=== PATIENT | male | born 1975 | race Caucasian/White ===

== ENCOUNTER 2017-01-18 21:55 | Observation (INO) | payer OTHER ==
[2017-01-18 21:57] VITALS: BP 167/103; PULSE 97; RESP 16; TEMP 98.4; O2SAT 100
--- NOTE | 2017-01-18 22:13 | PD ---
Physical Exam Date Seen by Provider: Jan 18, 2017 Time Seen by Provider: 22:10 Data Data Last Documented VS Vital Signs Date Time Temp Pulse Resp B/P Pulse Ox O2 Delivery O2 Flow Rate FiO2 01/18/17 21:57 98.4 97 16 167/103 100 Room Air MDM Supervised Visit with VAL: No Narrative Course 41 YO M with PMH of COPD with complaint of SOB x "a few days" despite treatment with nebs and inhalers at home. +intermittent nonproductive cough. ---F/C. O2 sat 100% ORA in triage. Vitals reviewed. Patient seen in triage. Awaiting bed placement. Anna Garcia Jan 18, 2017 22:13
[2017-01-18] MEDS ORDERED: SODIUM CHLORIDE 0.9% FLUSH 10 ML FLUSH IVF PRN (22:45)
[2017-01-18] MEDS ORDERED: methylPREDNISolone SOD SUCC 125 MG/2 ML VIAL IVP ONE (22:45)
--- NOTE | 2017-01-18 22:45 | PD ---
HPI Chief Complaint: Respiratory Symptoms Time Seen by Provider: 22:43 Travel History International Travel<30 days: No Contact w/Intl Traveler<30days: No Traveled to known affect area: No History of Present Illness HPI 41-year-old male with history of asthma/COPD presents with 2 days of progressively worsening shortness of breath and wheezing. Patient's had nonproductive cough. Patient denies fever or chills. Patient denies pleuritic chest pain. Patient has had no swelling or pain to lower extremities. Patient does have multiple medications he takes for his respiratory illness and has been using his rescue inhaler as well as nebulized treatments and Spiriva without symptomatic relief. Patient recently ran out of his oral steroid 2 days ago. Patient states he has never been hospitalized for exacerbation of asthma/COPD. No tobacco use 4 months. PFSH Past Medical History Bipolar Disorder: Yes COPD: Yes Diminished Hearing: No Tetanus Vaccination: Unknown Influenza Vaccination: No Past Surgical History Tonsillectomy: Yes Social History Alcohol Use: Yes (RECOVERING ALCOHOLIC, QUIT 18 YRS AGO) Tobacco Use: Yes (QUIT 4 MONTHS AGO) Allergies-Medications (Allergen,Severity, Reaction): Coded Allergies: No Known Allergies (Unverified , 01/18/17) Reported Meds & Prescriptions Reported Meds & Active Scripts Active Reported Levothyroxine (Levothyroxine Sodium) 25 Mcg Tab 25 Mcg PO DAILY Bupropion HCl ER 24 HR (Bupropion HCl) 300 Mg Tab 300 Mg PO DAILY Lamictal (Lamotrigine) 100 Mg Tab 100 Mg PO DAILY [place] Liq 300 Mg/5 Ml Liq 300 Mg PO TID Singulair (Montelukast Sodium) 10 Mg Tab 10 Mg PO HS Ventolin Hfa 18 GM Inh (Albuterol Sulfate) 90 Mcg/Act Aer 2 Puff INH Q4H PRN Symbicort Inh (Budesonide/Formoterol Fumarate) 80-4.5 Mcg/Act Aero 2 Puff INH Q12HR Albuterol Neb (Albuterol Sulfate) 0.63 Mg/3 Ml Neb 0.63 Mg NEB Q4HR NEB PRN Incruse Ellipta Inh (Umeclidinium [place] Inh) 0.0625 Mg/Act Inh 62.5 Mcg INH DAILY Spiriva Respimat Inh (Tiotropium Inh) 1.25 Mcg/Act Aero 2 Puff INH DAILY 1.25 mcg = 1 inhalation Review of Systems Except as stated in HPI: all other systems reviewed are Neg General / Constitutional: No: Fever, Chills HENT: No: Congestion Cardiovascular: Positive: Chest Pain or Discomfort Respiratory: Positive: Shortness of Breath, Wheezing Gastrointestinal: Positive: Nausea, No: Abdominal Pain Genitourinary: No: Flank Pain Musculoskeletal: No: Myalgias, Arthralgias, Edema, Pain Skin: No Rash Neurologic: No: Weakness Psychiatric: No: Anxiety Hematologic/Lymphatic: No: Lymph Node Enlargement Physical Exam Narrative GENERAL: Well-developed well-nourished male in mild respiratory distress room air O2 saturation 98% SKIN: Warm and dry. HEAD: Normocephalic. EYES: No scleral icterus. No injection or drainage. NECK: Supple, trachea midline. No JVD or lymphadenopathy. CARDIOVASCULAR: Regular rate and rhythm without murmurs, gallops, or rubs. RESPIRATORY: Breath sounds equal bilaterally few end expiratory wheeze to auscultation. No accessory muscle use. GASTROINTESTINAL: Abdomen soft, non-tender, nondistended. MUSCULOSKELETAL: No cyanosis, or edema. Bilateral radial and dorsalis pedis pulses 2+ to palpation. BACK: Nontender without obvious deformity. No CVA tenderness. Data Data Last Documented VS Vital Signs Date Time Temp Pulse Resp B/P Pulse Ox O2 Delivery O2 Flow Rate FiO2 01/19/17 00:53 98 24 138/82 96 Room Air 01/18/17 22:50 2.00 01/18/17 21:57 98.4 Orders Complete Blood Count With Diff (01/18/17 22:43) Basic Metabolic Panel (Bmp) (01/18/17 22:43) B-Type Natriuretic Peptide (01/18/17 22:43) Act Partial Throm Time (Ptt) (01/18/17 22:43) Prothrombin Time / Inr (Pt) (01/18/17 22:43) Magnesium (Mg) (01/18/17 22:43) Ckmb (Isoenzyme) Profile (01/18/17 22:43) Troponin I (01/18/17 22:43) Iv Access Insert/Monitor (01/18/17 22:43) Electrocardiogram (01/18/17 22:43) Ecg Monitoring (01/18/17 22:43) Oximetry (01/18/17 22:43) Oxygen Administration (01/18/17 22:43) Chest, Single Ap (01/18/17 22:43) Sodium Chloride 0.9% Flush (Ns Flush) (01/18/17 22:45) Methylprednisolone So Succ Inj (Solumedr (01/18/17 22:45) Albuterol-Ipratropium Neb (Duoneb Neb) (01/18/17 22:45) CKMB (01/18/17 22:40) CKMB% (01/18/17 22:40) Potassium Chloride (Kcl) (01/19/17 00:30) Aspirin Chew (Aspirin Chew) (01/19/17 09:00) Nitroglycerin Sl (Nitrostat Sl) (01/19/17 00:45) D-Dimer (01/19/17 00:41) Aspirin Chew (Aspirin Chew) (01/19/17 01:00) Nitroglycerin Sl (Nitrostat Sl) (01/19/17 02:30) Admit Order (Ed Use Only) (01/19/17 ) ^ Saline Lock (01/19/17 02:20) Resp Oxygen Maximus C Titrat 1-4 L (01/19/17 ) Notify Dr: Other (01/19/17 02:20) Sodium Chloride 0.9% Flush (Ns Flush) (01/19/17 09:00) Sodium Chloride 0.9% Flush (Ns Flush) (01/19/17 02:30) Activity Bed Rest With Brp (01/19/17 02:20) Vital Signs (Adult) Q4H (01/19/17 02:20) Cardiac Rhythm .As Directed (01/19/17 02:20) Notify Dr: Other .PRN (01/19/17 02:20) Notify Dr. Parameters (01/19/17 02:20) Resp Oxygen Nasal Cannula (01/19/17 ) Labs Laboratory Tests Test 01/18/17 22:40 White Blood Count 9.9 TH/MM3 Red Blood Count 4.33 MIL/MM3 Hemoglobin 13.3 GM/DL Hematocrit 39.1 % Mean Corpuscular Volume 90.1 FL Mean Corpuscular Hemoglobin 30.6 PG Mean Corpuscular Hemoglobin 34.0 % Concent Red Cell Distribution Width 13.2 % Platelet Count 204 TH/MM3 Mean Platelet Volume 8.3 FL Neutrophils (%) (Auto) 66.3 % Lymphocytes (%) (Auto) 23.5 % Monocytes (%) (Auto) 7.3 % Eosinophils (%) (Auto) 2.5 % Basophils (%) (Auto) 0.4 % Neutrophils # (Auto) 6.5 TH/MM3 Lymphocytes # (Auto) 2.3 TH/MM3 Monocytes # (Auto) 0.7 TH/MM3 Eosinophils # (Auto) 0.2 TH/MM3 Basophils # (Auto) 0.0 TH/MM3 CBC Comment DIFF FINAL Differential Comment Prothrombin Time 9.8 SEC Prothromb Time International 0.9 RATIO Ratio Activated Partial 24.8 SEC Thromboplast Time D-Dimer Quantitative (PE/DVT) 0.20 MG/L FEU Sodium Level 141 MEQ/L Potassium Level 3.3 MEQ/L Chloride Level 108 MEQ/L Carbon Dioxide Level 23.7 MEQ/L Anion Gap 9 MEQ/L Blood Urea Nitrogen 10 MG/DL Creatinine 1.30 MG/DL Estimat Glomerular Filtration 61 ML/MIN Rate Random Glucose 82 MG/DL Calcium Level 9.1 MG/DL Magnesium Level 2.1 MG/DL Total Creatine Kinase 108 U/L Creatine Kinase MB 1.5 NG/ML Troponin I LESS THAN 0.02 NG/ML B-Type Natriuretic Peptide 8 PG/ML MDM Medical Decision Making Medical Screen Exam Complete: Yes Emergency Medical Condition: Yes Medical Record Reviewed: Yes Interpretation(s) EKG: Normal sinus rhythm rate [address] elevation or injury pattern or ectopy noted Vital Signs Date Time Temp Pulse Resp B/P Pulse Ox O2 Delivery O2 Flow Rate FiO2 01/19/17 00:53 98 24 138/82 96 Room Air 01/18/17 22:50 100 Nasal Cannula 2.00 01/18/17 22:35 100 Nasal Cannula 2 01/18/17 21:57 98.4 97 16 167/103 100 Room Air CBC & BMP Diagram 01/18/17 22:40 cxr: nad per reading radiologist --reviewed by me Differential Diagnosis Exacerbation COPD, asthma, CHF, PE, ACS, pneumonia, pneumothorax Narrative Course Patient given DuoNeb updraft 3 along with Solu-Medrol; patient had EKG performed which shows no acute ST elevation Patient resting comfortably states no shortness of breath but continues to complain of chest tightness and is concerned that perhaps he has something wrong with his heart Patient administered sublingual nitroglycerin times one and 7/10 chest tightness is decreased to 3/10 in intensity patient also administered aspirin Additional sublingual nitroglycerin administered Patient chest pain-free lung sounds remained clear will place patient in chest pain center per protocol to evaluate further for possible cardiac related etiology of chest tightness is no wheezing of significance upon arrival and en route lungs remained clear after updraft treatments; patient was a cigarette smoker until 4 months ago. Lab values are grossly normal range. D-dimer is not elevated. First set of cardiac enzymes are normal range. Patient given oral potassium replacement. Physician Communication Physician Communication will obs to headline writer per protocol --for chest pain Diagnosis Primary Impression: Chest pain Additional Impression: History of COPD Admitting Information Admitting Physician Requests: Observation Claudia Myers MD Jan 18, 2017 22:45
[2017-01-18] MEDS: RESP: ALBUTEROL 2.5 MG/IPRATROPIUM 0.5 MG NEB (SCH) INH ×2 (22:49→22:50)
[2017-01-18 22:50] VITALS: O2SAT 100
--- NOTE | 2017-01-18 23:09 | RADRPT ---
EXAM DATE/TIME: 01/18/2017 22:40 [facility] COMPARISON: No previous studies available for comparison. INDICATIONS : Shortness of Breath MEDICAL HISTORY : Chronic obstructive pulmonary disease. SURGICAL HISTORY : None. ENCOUNTER: Initial ACUITY: 1 day PAIN SCORE: 0/10 LOCATION: Bilateral chest FINDINGS: Single AP view of the chest. The lungs are clear. Cardiomediastinal silhouette within normal limits. No evidence of pleural effusion or pneumothorax. CONCLUSION: No acute cardiopulmonary disease identified. Lele Chavarria MD on January 18, 2017 at 23:06 Board Certified Radiologist. This report was verified electronically.
[2017-01-18 23:37] LABS: AUTOMATED NEUTROPHIL # 6.5 TH/MM3 (1.8-7.7); BASOPHIL % 0.4 % (0.0-2.0); EOSINOPHIL # 0.2 TH/MM3 (0-0.4); EOSINOPHIL % 2.5 % (0.0-4.0); HEMATOCRIT 39.1 % (39.0-51.0); HEMO FLAGS DIFF FINAL; LYMPH % 23.5 % (9.0-44.0); LYMPHOCYTE # 2.3 TH/MM3 (1.0-4.8); MEAN CELL VOLUME 90.1 FL (80.0-100.0); MEAN CORPUSCULAR HEMOGLOBIN 30.6 PG (27.0-34.0); MONO % 7.3 % (0.0-8.0); NEUT % 66.3 % (16.0-70.0); PLATELET COUNT 204 TH/MM3 (150-450); RED BLOOD COUNT 4.33 MIL/MM3 (4.50-5.90); RED CELL DISTRIBUTION WIDTH 13.2 % (11.6-17.2); WHITE BLOOD COUNT 9.9 TH/MM3 (4.0-11.0)
[2017-01-19] VITALS (8 sets, daily range): BP systolic 120–139; BP diastolic 74–82; PULSE 74–103; RESP 15–24; TEMP 97.6–98.8; O2SAT 96–99
[2017-01-19 00:03] LABS: APTT (PATIENT) 24.8 SEC (24.3-30.1); INTERNATIONAL NORMALIZED RATIO 0.9 RATIO; PROTHROMBIN TIME - PATIENT 9.8 SEC (9.8-11.6)
[2017-01-19 00:13] LABS: CREATINE KINASE 108 U/L (39-308)
[2017-01-19 00:18] LABS: ANION GAP 9 MEQ/L (5-15); BICARBONATE 23.7 MEQ/L (21.0-32.0); BLOOD UREA NITROGEN 10 MG/DL (7-18); CHLORIDE 108 MEQ/L (98-107); GLOMERULAR FILTRATION RATE 61 ML/MIN (>89); MAGNESIUM 2.1 MG/DL (1.5-2.5); POTASSIUM 3.3 MEQ/L (3.5-5.1); SODIUM (NA) 141 MEQ/L (136-145)
[2017-01-19 00:26] LABS: CKMB 1.5 NG/ML (0.5-3.6)
[2017-01-19] MEDS ORDERED: POTASSIUM CHLORIDE 20 MEQ CONTROLLED RELEASE TAB PO ONE (00:30)
[2017-01-19] MEDS ORDERED: NITROGLYCERIN 0.4 MG SL 25 TABS/BTL SL ONE ×2 (00:45→02:30)
[2017-01-19] MEDS ORDERED: ASPIRIN 81 MG CHEW TAB CHEW ONE (01:00)
[2017-01-19] MEDS ORDERED: SYMB80AE INH (01:11)
[2017-01-19] MEDS ORDERED: LITH8SYP PO (01:11)
[2017-01-19] MEDS ORDERED: LAMO100 PO ×2 (01:11→13:08)
[2017-01-19] MEDS ORDERED: BUPR300T PO (01:11)
[2017-01-19] MEDS ORDERED: LEVO25TA4 PO (01:11)
[2017-01-19] MEDS ORDERED: UMEC1INH INH (01:11)
[2017-01-19] MEDS ORDERED: VENTAER INH (01:11)
[2017-01-19] MEDS ORDERED: ALBU0.63 NEB (01:11)
[2017-01-19] MEDS ORDERED: TIOT1AER2 INH (01:11)
[2017-01-19] MEDS ORDERED: MONT10TA2 PO (01:11)
[2017-01-19] MEDS ORDERED: SODIUM CHLORIDE 0.9% FLUSH 10 ML FLUSH PRN (02:30)
[2017-01-19] MEDS ORDERED: ACETAMINOPHEN/HYDROcodone 325 MG/7.5 MG TAB PO PRN (02:30)
[2017-01-19] MEDS ORDERED: RESP: ALBUTEROL 2.5 MG/IPRATROPIUM 0.5 MG NEB (PRN) NEB (02:30)
[2017-01-19] MEDS ORDERED: NITROGLYCERIN 0.4 MG SL 25 TABS/BTL SL PRN (02:30)
[2017-01-19] MEDS ORDERED: ACETAMINOPHEN 500 MG CPLT PO PRN (02:30)
[2017-01-19] MEDS ORDERED: SODIUM CHLORIDE 0.9% FLUSH 10 ML FLUSH IVF PRN (02:30)
[2017-01-19] MEDS ORDERED: MORPHINE SULFATE 4 MG/ML INJ IV PRN (02:30)
[2017-01-19 03:55] LABS: CREATINE KINASE 78 U/L (39-308)
[2017-01-19 06:22] LABS: CREATINE KINASE 75 U/L (39-308)
[2017-01-19] MEDS ORDERED: ONDANSETRON HCL 4 MG/2 ML VIAL IV PRN (09:00)
[2017-01-19] MEDS ORDERED: SODIUM CHLORIDE 0.9% FLUSH 10 ML FLUSH SCH (09:00)
[2017-01-19] MEDS ORDERED: ASPIRIN 325 MG TAB PO SCH (09:00)
[2017-01-19] MEDS ORDERED: BUDESONIDE-FORMOTEROL 80/4.5 MCG INHALER INH SCH (09:00)
[2017-01-19] MEDS ORDERED: LITHIUM ORAL SOLUTION 300 MG/5 ML CUP PO SCH (09:00)
[2017-01-19] MEDS ORDERED: ASPIRIN 81 MG CHEW TAB CHEW SCH (09:00)
[2017-01-19] MEDS ORDERED: LEVOTHYROXINE SODIUM 25 MCG TAB PO SCH (09:00)
[2017-01-19] MEDS ORDERED: lamoTRIgine 100 MG TAB PO SCH (09:00)
[2017-01-19] MEDS ORDERED: SODIUM CHLORIDE 0.9% FLUSH 10 ML FLUSH IV FLUSH SCH (09:00)
[2017-01-19] MEDS ORDERED: TIOTROPIUM INH SCH (09:30)
[2017-01-19] MEDS ORDERED: buPROPion HCL 150 MG SUSTAINED RELEASE TAB PO SCH (09:30)
[2017-01-19] MEDS ORDERED: UMECLIDINIUM BROMIDE 62.5 MCG INH SCH (09:30)
[2017-01-19] MEDS ORDERED: LITH300T3 PO (09:38)
--- NOTE | 2017-01-19 10:37 | HHI.HP ---
HPI Primary Care Physician Non-Staff Chief Complaint Shortness of breath and chest tightness History of Present Illness 41-year-old male with known asthma, COPD, and bipolar presents to emergency room for further evaluation of exacerbating asthma symptoms. States past 2 days progressive worsening of asthma/COPD symptoms therefore came to the emergency room for further evaluation. He was seen and evaluated in emergency room given multiple nebulizers and IV steroids. States he currently feels much better in regards to chest tightness and shortness of breath. Completed an exercise stress test September 2016 and was told test was completely normal. Denies any current chest pain or pressure. He believes chest tightness is related to his lung issues, not cardiac. No associated symptoms or diaphoresis. Experienced nausea on Friday evening. Hurt to cough and to breath last two days, this symptoms have since resolved. Relieving factor included nitro tablets provided in the ER, although chest tightness has never gone completely away currently rating tightness 1/10. Follows with a primary care provider and a final installer inspector on a regular basis. Review of Systems General: No fatigue,weakness, fever, chills, recent illness or change in appetite. Has been his general state of health other than the last 2 days exacerbating asthma symptoms. HEENT: No [place], no nasal congestion or drainage CV: As stated above. Denies any chest pain or pressure. Chest tightness has improved currently rated 1/10. RESP: History of asthma and COPD and it became progressively worse over the past 2 days. Currently no SOB, cough, or wheeze GI: No nausea, vomiting, bowel changes. Reports 2 months of 4-5 loose stools daily. Has not tried any over the counter medications for diarrhea. Colonoscopy in the past found 7 polyps, 3 at which were precancerous a few years ago. Follows with GI for colonoscopy every 3 years, however due to loose stools has appointment schedule in February. : No dysuria, urgency, frequency EXT: No lower leg edema, no paraesthesias MS: No discomfort or change in ROM NEURO: No motor/sensory deficits PSYCH: Bipolar stable on current medication regimen for "many years." No current anxiety or depression. SKIN: No rashes, no concerning lesions Past Family Social History Allergies: Coded Allergies: No Known Allergies (Unverified , 01/18/17) Past Medical History Asthma, COPD, bipolar, precancerous colon polyps removed Past Surgical History Tonsillectomy Reported Medications Active Reported [place] Carbonate 300 Mg Tab 300 Mg PO TID TAKES 1 IN THE MORNING, 1 AT 2 PM AND 2 IN THE EVENING Levothyroxine (Levothyroxine Sodium) 25 Mcg Tab 25 Mcg PO DAILY Bupropion HCl ER 24 HR (Bupropion HCl) 300 Mg Tab 300 Mg PO DAILY Singulair (Montelukast Sodium) 10 Mg Tab 10 Mg PO HS Ventolin Hfa 18 GM Inh (Albuterol Sulfate) 90 Mcg/Act Aer 2 Puff INH Q4H PRN Symbicort Inh (Budesonide/Formoterol Fumarate) 80-4.5 Mcg/Act Aero 2 Puff INH Q12HR Albuterol Neb (Albuterol Sulfate) 0.63 Mg/3 Ml Neb 0.63 Mg NEB Q4HR NEB PRN Incruse Ellipta Inh (Umeclidinium [place] Inh) 0.0625 Mg/Act Inh 62.5 Mcg INH DAILY Spiriva Respimat Inh (Tiotropium Inh) 1.25 Mcg/Act Aero 2 Puff INH DAILY 1.25 mcg = 1 inhalation Active Ordered Medications Current Medications Medications (Trade) Dose Ordered Sig/Steve Route Start Time Stop Time Status Last Admin (NS Flush) 2 ml BID IV FLUSH 01/19/17 09:00 01/19/17 08:13 (NS Flush) 2 ml UNSCH PRN IVF 01/19/17 02:30 (Tylenol) 500 mg Q4H PRN PO 01/19/17 02:30 01/19/17 10:13 ([place] 7.5-325 Mg) 1 tab Q4H PRN PO 01/19/17 02:30 (Morphine Inj) 2 mg Q4H PRN IV 01/19/17 02:30 (Nitrostat Sl) 0.4 mg Q5M PRN SL 01/19/17 02:30 (Zofran Inj) 4 mg Q6H PRN IV 01/19/17 09:00 (Aspirin) 325 mg DAILY PO 01/19/17 09:00 01/19/17 10:12 (Symbicort 80-4.5 Mcg Inh) 2 puff Q12HR INH 01/19/17 09:00 01/19/17 10:12 (Wellbutrin Sr) 150 mg BID PO 01/19/17 09:30 01/19/17 10:12 (LaMICtal) 100 mg DAILY PO 01/19/17 09:00 01/19/17 10:12 (Synthroid) 25 mcg DAILY@0600 PO 01/19/17 09:00 01/19/17 09:35 (Singulair) 10 mg HS PO 01/19/17 21:00 Patient Own Medication PT OWN MED: Tiotrop... DAILY INH 01/19/17 09:30 Hold Patient Own Medication PT OWN MED: Umeclidinium Brom... DAILY INH 01/19/17 09:30 Hold (Lithotabs) 300 mg TID PO 01/19/17 13:00 Social History No known diabetes, hypertension, or hyperlipidemia. Quit smoking 4 months ago, prior to quitting smoked 1-2 packs/daily. Denies any alcohol or illegal drug use. 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 Lives an active lifestyle. Past cardiac testing 09/2016 treadmill stress test completed [facility] reports test was unremarkable. Physical Exam Vital Signs Vital Signs Date Time Temp Pulse Resp B/P Pulse Ox O2 Delivery O2 Flow Rate FiO2 01/19/17 07:58 98.8 91 15 132/76 98 01/19/17 06:45 21 01/19/17 06:11 98 01/19/17 04:42 97.6 92 20 139/81 99 01/19/17 03:32 98.4 74 19 127/78 99 01/19/17 03:07 18 01/19/17 03:00 88 20 121/81 98 Room Air 01/19/17 01:00 19 01/19/17 00:53 98 24 138/82 96 Room Air 01/18/17 22:50 100 Nasal Cannula 2.00 01/18/17 22:35 100 Nasal Cannula 2 01/18/17 21:57 98.4 97 16 167/103 100 Room Air Physical Exam GENERAL: Alert WN, WD, NAD, pleasant, male HEAD: NC, AT EYES: Sclera clear, conjunctiva without injection, pupils equal and round ENT: Mucous membranes pink and moist CV: RRR, without murmur, rub, gallop, no JVD, S1-S2 no S3-S4. RESP: Clear lungs throughout bilateral, no crackles, wheeze, rhonchi, symmetrical chest rise, nonlabored, able to speak in full sentences ABD: Soft, NT, ND, no masses, positive bowel tones EXT: Pulses +24, no dependent edema MS: Normal tone 4 extremities, nontender, no obvious deformities, full range of motion NEURO: CN II through CN XII grossly intact, motor strength 5/5, gait WNL PSYCH: A+O 3, pleasant affect, appropriate speech, appropriate mood and affect , insight and judgment SKIN: Normal turgor, normal texture, no lesions, no rashes, brisk cap refill, even hair distribution Laboratory Laboratory Tests Test 01/18/17 01/19/17 01/19/17 22:40 03:00 05:25 White Blood Count 9.9 Red Blood Count 4.33 Hemoglobin 13.3 Hematocrit 39.1 Mean Corpuscular Volume 90.1 Mean Corpuscular Hemoglobin 30.6 Mean Corpuscular Hemoglobin 34.0 Concent Red Cell Distribution Width 13.2 Platelet Count 204 Mean Platelet Volume 8.3 Neutrophils (%) (Auto) 66.3 Lymphocytes (%) (Auto) 23.5 Monocytes (%) (Auto) 7.3 Eosinophils (%) (Auto) 2.5 Basophils (%) (Auto) 0.4 Neutrophils # (Auto) 6.5 Lymphocytes # (Auto) 2.3 Monocytes # (Auto) 0.7 Eosinophils # (Auto) 0.2 Basophils # (Auto) 0.0 CBC Comment DIFF FINAL Differential Comment Prothrombin Time 9.8 Prothromb Time International 0.9 Ratio Activated Partial 24.8 Thromboplast Time D-Dimer Quantitative (PE/DVT) 0.20 Sodium Level 141 Potassium Level 3.3 Chloride Level 108 Carbon Dioxide Level 23.7 Anion Gap 9 Blood Urea Nitrogen 10 Creatinine 1.30 Estimat Glomerular Filtration 61 Rate Random Glucose 82 Calcium Level 9.1 Magnesium Level 2.1 Total Creatine Kinase 108 78 75 Creatine Kinase MB 1.5 Troponin I LESS THAN 0.02 LESS THAN 0.02 LESS THAN 0.02 B-Type Natriuretic Peptide 8 Result Diagram: 01/18/17223901/18/172239 Imaging Last Impressions Chest X-Ray 01/18/172242 Signed Impressions: Service Date/Time: Wednesday, January 18, 2017 22:40 - CONCLUSION: No acute cardiopulmonary disease identified. Lele Chavarria MD Course EKGs Normal sinus rhythm, normal axis, no ST or T-segment changes. 30 EKG normal sinus tachycardia, no ST or T-segment changes Assessment and Plan Assessment and Plan #1 Chest tightnessadmitted to chest pain center. Ruled out with 3 sets of cardiac enzymes, EKGs, monitor throughout evening. Will be seen and evaluated by Dr. Tommie Mancera. Chest tightness most likely related to his exacerbation of asthma. No further cardiac testing required at this time as he reports a normal exercise stress test September 2016. #2 Exacerbation of asthma-continue Singulair, Spiriva, Incruse, Albuterol nebulizers. Originally continued Symbicort until patient remembered he was taking a daily oral steroid. Stop Symbicort while taking oral steroids. Continue prednisone 10mg daily as prescribed by pulmonary. Make pulmonary MD aware of change of inhaler. Exacerbation may be a combination of too many inhalers and anxiety. #3 Bipolar disordercontinue home medications of lithium, bupropion, and Lamictal, follow up with psychologist as previously instructed. #4 Chronic diarrhea-recommended Imodium 2mg PO Q3H prn, keep follow up appointment with GI in February #5 Hypokalemia-recommended diet in high potassium including bananas, raisins, potatoes, and salt substitute until diarrhea has subsided #6 GERD-most likely related to his daily steroid use, Zantac 150mg BID x 2weeks , will provide #60 tablets at discharge if continued by his PCP, keep follow appointment with PCP in February. Rosy Herrera Jan 19, 2017 10:37
--- NOTE | 2017-01-19 12:12 | EKG ---
Date Performed: 01/18/2017 Time Performed: 22:40:51 PTAGE: 41 years EKG: Sinus rhythm NORMAL ECG NO PREVIOUS TRACING DOCTOR: Tommie Velásquez Interpretating Date/Time 01/20/2017 07:08:41
--- NOTE | 2017-01-19 12:19 | EKG ---
Date Performed: 01/19/2017 Time Performed: 03:08:56 PTAGE: 41 years EKG: Sinus rhythm POOR PRECORDIAL R-WAVE PROGRESSION BORDERLINE ECG PREVIOUS TRACING : 01/18/2017 22.40 DOCTOR: Tommie Velásuqez Interpretating Date/Time 01/19/2017 12:15:29
--- NOTE | 2017-01-19 12:23 | EKG ---
Date Performed: 01/19/2017 Time Performed: 05:22:34 PTAGE: 41 years EKG: SINUS TACHYCARDIA SEPTAL NONSPECIFIC T-WAVE CHANGES ABNORMAL ECG PREVIOUS TRACING : 01/19/2017 03.08 DOCTOR: Tommie Velásquez Interpretating Date/Time 01/19/2017 12:20:03
[2017-01-19] MEDS ORDERED: LITHIUM CARBONATE 300 MG TAB PO SCH (13:00)
--- NOTE | 2017-01-19 13:38 | HHI.DCPOC ---
Discharge Care Plan Diagnosis: (1) Exacerbation of asthma (2) COPD with exacerbation (3) GERD (gastroesophageal reflux disease) (4) Hypokalemia due to loss of potassium Goals to Promote Your Health * To prevent worsening of your condition and complications * To maintain your health at the optimal level Directions to Meet Your Goals Take your medications as prescribed Follow your dietary instruction Follow activity as directed Keep your appointments as scheduled Take your immunizations and boosters as scheduled If your symptoms worsen call your PCP, if no PCP go to Urgent Care Center or Emergency Room Smoking is Dangerous to Your Health. Avoid second hand smoke Call the 24-hour hour crisis hotline for domestic abuse at Rosy Herrera Jan 19, 2017 13:38
[2017-01-19] MEDS ORDERED: PRED10 PO (13:47)
[2017-01-19] MEDS ORDERED: RANI150T PO (14:07)
[2017-01-19] MEDS ORDERED: LOPE-1 PO (14:07)
[2017-01-19] MEDS ORDERED: MONTELUKAST SODIUM 10 MG TAB PO SCH (21:00)
== END 2017-01-19 14:39 | disposition home or self-care (01) ==
LOC: NEPC 21:55 → NEDA 01-19 02:34 → NEPHCDU 01-19 04:40
PROVIDERS: ADMIT Family Medicine; ATTEND Family Medicine
DX: J45.901 Unspecified asthma with (acute) exacerbation (principal); J44.9 Chronic obstructive pulmonary disease, unspecified; E87.6 Hypokalemia; K21.9 Gastro-esophageal reflux disease without esophagitis; R07.89 Other chest pain; F31.9 Bipolar disorder, unspecified; R19.7 Diarrhea, unspecified; Z79.51 Long term (current) use of inhaled steroids
CPT/HCPCS: 71010; 80048; 82550; 82552; 83735; 83880; 84484; 85025; 85379; 85610; 85730; 93005; 94640; 94664; 96374; 99285; G0378; J2930

== ENCOUNTER 2017-10-21 06:46 | Observation (INO) | payer OTHER ==
[~2017-10-21 06:46] MED LIST: ALBU0.63 NEB; ALBU1.25 NEB; BUPR300T PO; IPRA0.02 NEB; LAMO100 PO; LEVA500T33 PO; LEVO25TA4 PO; LITH300T3 PO; MONT10TA2 PO; PANT40TA3 PO; PRED10 PO; SYMB160A INH; TIOT1AER2 INH; VENTAER INH; [UNRECOGNIZED DRUG - OTHER]
[2017-10-21 13:48] VITALS: BP 118/74; PULSE 77; RESP 22; TEMP 97.8; O2SAT 96
[2017-10-21] MEDS ORDERED: ONDANSETRON HCL 4 MG/2 ML VIAL IVP PRN (14:00)
[2017-10-21] MEDS ORDERED: ACETAMINOPHEN 325 MG TAB PO PRN (14:00)
[2017-10-21] MEDS ORDERED: RESP: ALBUTEROL 2.5 MG/IPRATROPIUM 0.5 MG NEB (SCH) NEB (14:00)
[2017-10-21] MEDS ORDERED: NALOXONE HCL 0.4 MG/ML AMP IV PUSH PRN (14:00)
[2017-10-21] MEDS ORDERED: MAGNESIUM HYDROXIDE SUSP 30 ML CUP PO PRN (14:00)
[2017-10-21] MEDS ORDERED: RESP: ALBUTEROL 2.5 MG/IPRATROPIUM 0.5 MG NEB (PRN) NEB (14:00)
[2017-10-21 14:28] VITALS: BP 131/85; PULSE 104; RESP 18; TEMP 98; O2SAT 97
--- NOTE | 2017-10-21 14:43 | HHI.HP ---
HPI Service CP Hospitalists Primary Care Physician Zuhair Noel MD Admission Diagnosis Chief Complaint: SOB Travel History International Travel<30 Days: No Contact w/Intl Traveler <30 Da: No History of Present Illness Mr. Durant is a 41 y/o WM with reported hx of severe asthma, COPD, hypothyroidism, and reportedly recently diagnosed ITP. He follows with a Dr. Haywood for his asthma and reported COPD. Patient was recently discharged from [facility] 10/17/17 after being treated for COPD exacerbation. Pt presented to the ER in [place] today with complaints of dyspnea and inability to get a deep breath. Patient also notes diaphoresis as well. Patient states this is similar to exacerbations of COPD in the past. Patient has been taking albuterol/Atrovent nebulizer treatments at home without significant relief. Denies any cough production,. Pt has been afebrile. He states that he doesn't typically get fevers when he has been "septic" in the past. He states that he has been hospitalized 12 times in the last 5 months due to respiratory issues. CXR in [place] ED was negative for any acute process. On arrival pt appeared in no distress but when describing his sx's begins to hyperventilate. He is defensive when I ask why he is choosing to leave his pulmonlogist/ore puncher in [place] to come here. He is defensive when I ask about anxiety. He is asking me for specific testing including "lactic acid levels and specifically asking me for "iv antibiotics". He says that a ore puncher told him he has ITP and this could be flaring his copd. Review of Systems Respiratory: COMPLAINS OF: Cough, Shortness of breath Psychiatric: COMPLAINS OF: Anxiety Other sob Past Family Social History Past Medical History Severe asthma and reported COPD, follows with Dr. Haywood in [place] Reported recently diagnosed ITP, receiving plasma infusion started 5 days ago, follows with Dr. 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 Precancerous colon polyps, now gets yearly colonoscopies since age 39 Chronic prostatitis per the pt Hypothyroidism Past Surgical History Tonsillectomy in 2008 Colonoscopy Reported Medications Albuterol Neb (Albuterol Sulfate) 1.25 Mg/3 Ml Neb 1.25 Mg NEB Q6HR NEB PRN Ipratropium Neb (Ipratropium [place]) 0.5 Mg/2.5 Ml Amp 0.5 Mg NEB Q6HR NEB PRN Prednisone 10 Mg Tab 10 Mg PO DIRECTED take 20 mg twice a day by mouth for 5 days, then take 20 mg once a day by mouth for 5 days, then take 10 mg once a day by mouth for 5 days, then stop Pantoprazole (Pantoprazole Sodium) 40 Mg Tab 40 Mg PO DAILY Levaquin (Levofloxacin) 500 Mg Tablet 500 Mg PO Q24H 5 Days Symbicort Inh (Budesonide/Formoterol Fumarate) 160-4.5 Mcg/Act Aero 1 Puff INH Q12HR [Plasma] Lamictal (Lamotrigine) 100 Mg Tab 100 Mg PO DAILY [place] Carbonate 300 Mg Tab 600 Mg PO BID Levothyroxine (Levothyroxine Sodium) 25 Mcg Tab 25 Mcg PO DAILY Bupropion HCl ER 24 HR (Bupropion HCl) 300 Mg Tab 300 Mg PO DAILY Singulair (Montelukast Sodium) 10 Mg Tab 10 Mg PO HS Ventolin Hfa 18 GM Inh (Albuterol Sulfate) 90 Mcg/Act Aer 2 Puff INH Q4H PRN Albuterol Neb (Albuterol Sulfate) 0.63 Mg/3 Ml Neb 0.63 Mg NEB Q4HR NEB PRN Spiriva Respimat Inh (Tiotropium Inh) 1.25 Mcg/Act Aero 2 Puff INH DAILY 1.25 mcg = 1 inhalation Allergies: Coded Allergies: No Known Allergies (Unverified Allergy, Unknown, 10/14/17) Family History Paternal GM and GF with lung cancer Aunts and uncles with colon cancer Brother with hx of precancerous colon polyps Social History Hx of tobacco use, smoked 2ppd x 26 years, quit in 2017 Remote hx of alcohol abuse, none for 19 years Denies any illicit drug use 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 heart reg lung cta abd s/nt ext no edema Caprini VTE Risk Assessment Caprini VTE Risk Assessment: No/Low Risk (score <= 1) Caprini Risk Assessment Model Point Value = 1 Point Value = 2 Point Value = 3 Point Value = 5 Age 41-60 Minor surgery BMI > 25 kg/m2 Swollen legs Varicose veins or History of unexplained or recurrent spontaneous Oral contraceptives or hormone replacement Sepsis (< 1 month) Serious lung disease, including pneumonia (< 1 month) Abnormal pulmonary function Acute myocardial infarction Congestive heart failure (< 1 month) History of inflammatory bowel disease Medical patient at bed rest Age 61-74 Arthroscopic surgery Major open surgery (> 45 min) Laparoscopic surgery (> 45 min) Malignancy Confined to bed (> 72 hours) Immobilizing plaster cast Central venous access Age >= 75 History of VTE Family history of VTE Factor V Leiden Prothrombin [id number] Lupus anticoagulant Anticardiolipin antibodies Elevated serum homocysteine Heparin-induced thrombocytopenia Other congenital or acquired thrombophilia Stroke (< 1 month) Elective arthroplasty Hip, pelvis, or leg fracture Acute spinal cord injury (< 1 month) Prophylaxis Regimen Total Risk Factor Score Risk Level Prophylaxis Regimen 0-1 Low Early ambulation 2 Moderate Order ONE of the following: *Sequential Compression Device (SCD) *Heparin 5000 units SQ BID 3-4 Higher Order ONE of the following medications: *Heparin 5000 units SQ TID *Enoxaparin/Lovenox 40 mg SQ daily (WT < 150 kg, CrCl > 30 mL/min) *Enoxaparin/Lovenox 30 mg SQ daily (WT < 150 kg, CrCl > 10-29 mL/min) *Enoxaparin/Lovenox 30 mg SQ BID (WT < 150 kg, CrCl > 30 mL/min) AND/OR *Sequential Compression Device (SCD) 5 or more Highest Order ONE of the following medications: *Heparin 5000 units SQ TID (Preferred with Epidurals) *Enoxaparin/Lovenox 40 mg SQ daily (WT < 150 kg, CrCl > 30 mL/min) *Enoxaparin/Lovenox 30 mg SQ daily (WT < 150 kg, CrCl > 10-29 mL/min) *Enoxaparin/Lovenox 30 mg SQ BID (WT < 150 kg, CrCl > 30 mL/min) AND *Sequential Compression Device (SCD) Assessment and Plan Problem List: (1) Dyspnea ICD Codes: R06.00 - Dyspnea, unspecified Status: Acute Plan: Shortness of breath - Pt is a 41 y/o WM with reported hx of severe asthma, COPD, hypothyroidism, and reportedly recently diagnosed ITP. He follows with a Dr. Haywood for his asthma and reported COPD. He states that he has been hospitalized 13 times in the last 5 months due to respiratory issues. - his Lactic acid on admission was 2.8. Pt has been afebrile. - CXR in [place] ED was negative for any acute process. 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 home meds, Spiriva, Symbicort, Singulair - Pt does not appear septic, Bipolar disorder - Cont. home meds - Hypokalemia due to loss of potassium - Pt received replacement in the ED GERD (gastroesophageal reflux disease) - PPI Steroid-induced hyperglycemia - Hgb A1C 4.8 - NovoLog SSI - Accu checks Hypothyroidism - Cont. home meds Krystni Gonzalez Oct 21, 2017 14:43 Tommie Judge MD Oct 21, 2017 15:11
[2017-10-21] MEDS ORDERED: POTASSIUM CHLORIDE 20 MEQ CONTROLLED RELEASE TAB PO ONE (15:15)
[2017-10-21] MEDS: RESP: ALBUTEROL 2.5 MG/IPRATROPIUM 0.5 MG NEB (SCH) NEB ×2 (15:15→21:50)
[2017-10-21] MEDS: methylPREDNISolone SOD SUCC 125 MG/2 ML VIAL IV PUSH SCH ×2 (18:38→18:51)
[2017-10-21] MEDS: DOCUSATE SODIUM 50 MG/SENNA 8.6 MG TAB PO SCH (21:00)
[2017-10-21] MEDS ORDERED: MONTELUKAST SODIUM 10 MG TAB PO SCH (21:00)
[2017-10-21 21:52] VITALS: O2SAT 96
[2017-10-21] MEDS: LITHIUM CARBONATE 300 MG TAB PO SCH (22:19)
[2017-10-21] MEDS: SODIUM CHLORIDE 0.9% FLUSH 10 ML FLUSH IV FLUSH SCH (22:22)
[2017-10-21] MEDS: BUDESONIDE-FORMOTEROL 160/4.5 MCG INHALER INH SCH (22:22)
[2017-10-22] VITALS (9 sets, daily range): BP systolic 104–141; BP diastolic 61–86; PULSE 86–113; RESP 18; TEMP 97–98.9; O2SAT 96–100
[2017-10-22] MEDS: methylPREDNISolone SOD SUCC 125 MG/2 ML VIAL IV PUSH SCH ×4 (00:56→17:51)
[2017-10-22] MEDS ORDERED: LEVOTHYROXINE SODIUM 25 MCG TAB PO SCH (06:00)
[2017-10-22 06:13] LABS: AUTOMATED NEUTROPHIL # 14.1 TH/MM3 (1.8-7.7); BASOPHIL % 0.1 % (0.0-2.0); HEMATOCRIT 40.9 % (39.0-51.0); HEMOGLOBIN 13.8 GM/DL (13.0-17.0); LYMPH % 5.3 % (9.0-44.0); LYMPHOCYTE # 0.8 TH/MM3 (1.0-4.8); MEAN CELL VOLUME 88.7 FL (80.0-100.0); MEAN CORPUSCULAR HGB CONC 33.8 % (32.0-36.0); MEAN PLATELET VOLUME 8.2 FL (7.0-11.0); MONO % 0.6 % (0.0-8.0); MONOCYTE # 0.1 TH/MM3 (0-0.9); PLATELET COUNT 254 TH/MM3 (150-450); RED BLOOD COUNT 4.61 MIL/MM3 (4.50-5.90); RED CELL DISTRIBUTION WIDTH 12.6 % (11.6-17.2)
[2017-10-22 06:41] LABS: BICARBONATE 22.7 MEQ/L (21.0-32.0); CALCIUM 9.6 MG/DL (8.5-10.1); CREATININE 1.29 MG/DL (0.60-1.30)
[2017-10-22] MEDS: RESP: ALBUTEROL 2.5 MG/IPRATROPIUM 0.5 MG NEB (SCH) NEB ×3 (08:00→16:14)
--- NOTE | 2017-10-22 08:36 | MB ---
cc: Keshia Schmitt MD DATE: 10/21/2017 REASON FOR CONSULTATION: COPD and/or asthma exacerbation. HISTORY OF PRESENT ILLNESS: The patient is a 41-year-old male with known history of COPD with asthma component, has a recent diagnosis of ITP. He lives in [place] and normally followed by Dr. Haywood. 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 He uses nebulized albuterol and ipratropium. Comes to the emergency room complaining of increasing shortness of breath and wheeze. Upon my interview, the patient seems alert, comfortable, in no distress. His oxygen saturation is 97% on room air. PAST MEDICAL HISTORY: 1. COPD, asthma component. 2. ITP. 3. Tobacco use, over 50 pack year history, stopped in September of last year 4. Bipolar disorder. He used to drink heavily, has not done so in 19 years. 5. Hypothyroidism. 6. Chronic prostatitis. 7. Had a T and A as a child. 8. Previous colonoscopy. MEDICATIONS AT HOME INCLUDE: 1. Prednisone 10 mg daily. 2. Nebulized albuterol/ipratropium, as well as albuterol metered dose inhaler p.r.n. 3. Pantoprazole. 4. Levaquin. 5. Symbicort. 6. Lamictal. 7. [place] 8. Levothyroxine. 9. Bupropion. 10. Singulair. 11. Spiriva once a day. ALLERGIES: NONE KNOWN TO MEDICATION. FAMILY HISTORY: Noncontributory. No history of bronchial asthma. Positive for colon and lung cancer. SOCIAL HISTORY: Smoked as above. He used to drink as above. Does not use drugs. REVIEW OF SYSTEMS: A 12-point review of system as per HPI and past history, otherwise negative. PHYSICAL EXAMINATION: GENERAL: The patient is alert. VITAL SIGNS: Temperature 98, pulse 90, pulse 80, respirations 18, blood pressure 130/80, oxygen saturation 97% on room air. HEENT: Unremarkable. Eyes without icterus. NECK: Without adenopathy, thyroid enlargement. CHEST: No dullness to percussion. Clear to auscultation. CARDIOVASCULAR: PMI distant. S1, S2 audible. No murmur, no rub. ABDOMEN: Lax, normal bowel sounds. EXTREMITIES: No clubbing, cyanosis or edema. IMPRESSION: 1. History of exacerbation of chronic obstructive pulmonary disease and/or bronchial asthma, as discussed above. Chest x-ray done in [facility] was done in the hospital emergency room before transfer to this hospital because of chronic obstructive pulmonary disease exacerbation. 2. Bipolar disorder. 3. Idiopathic thrombocytopenic purpura by history. 4. Hypothyroidism. PLAN: The patient seems to be doing well at present. His chest x-ray is clear, as mentioned above. Would continue Symbicort twice daily, Spiriva once a day and p.r.n. DuoNeb. If continues to be stable, may be discharged and followed as an outpatient. I do thank you for asking me to partake in Mr. Durant's care. Keshia Schmitt MD WWW/CHRIS , 06:50 PM , 07:19 PM
[2017-10-22] MEDS ORDERED: lamoTRIgine 100 MG TAB PO SCH (09:00)
[2017-10-22] MEDS ORDERED: PANTOPRAZOLE SOD 40 MG DELAYED RELEASE TAB PO SCH (09:00)
[2017-10-22] MEDS ORDERED: buPROPion HCL 150 MG SUSTAINED RELEASE TAB PO SCH (09:00)
[2017-10-22] MEDS: DOCUSATE SODIUM 50 MG/SENNA 8.6 MG TAB PO SCH (09:00)
[2017-10-22] MEDS ORDERED: LEVOFLOXACIN 500 MG TAB PO SCH (09:00)
[2017-10-22] MEDS: LITHIUM CARBONATE 300 MG TAB PO SCH (09:59)
[2017-10-22] MEDS: BUDESONIDE-FORMOTEROL 160/4.5 MCG INHALER INH SCH (09:59)
[2017-10-22] MEDS: SODIUM CHLORIDE 0.9% FLUSH 10 ML FLUSH IV FLUSH SCH (09:59)
--- NOTE | 2017-10-22 10:59 | HHI.PR ---
Subjective Remarks Pt feels that his SOB is improving but not back to baseline. He appears somewhat SOB when speaking but no audible wheezing noted He had a nebulized breathing treatment about 1 hour prior to my examination Objective Vitals Vital Signs Date Time Temp Pulse Resp B/P (MAP) Pulse Ox O2 Delivery O2 Flow Rate FiO2 10/22/17 08:01 98 21 10/22/17 07:05 98.1 89 18 125/72 (89) 97 10/22/17 05:59 97.8 87 18 104/61 (75) 100 10/22/17 02:06 98.7 96 18 112/73 (86) 96 10/21/17 21:52 96 21 10/21/17 14:28 98.0 104 18 131/85 (100) 97 10/21/17 13:48 97.8 77 22 118/74 (89) 96 Room Air Result Diagram: 10/22/17 0545 10/22/17 0545 Other Results Laboratory Tests Test 10/22/17 05:45 White Blood Count 15.0 TH/MM3 Red Blood Count 4.61 MIL/MM3 Hemoglobin 13.8 GM/DL Hematocrit 40.9 % Mean Corpuscular Volume 88.7 FL Mean Corpuscular Hemoglobin 30.0 PG Mean Corpuscular Hemoglobin Concent 33.8 % Red Cell Distribution Width 12.6 % Platelet Count 254 TH/MM3 Mean Platelet Volume 8.2 FL Neutrophils (%) (Auto) 94.0 % Lymphocytes (%) (Auto) 5.3 % Monocytes (%) (Auto) 0.6 % Eosinophils (%) (Auto) 0.0 % Basophils (%) (Auto) 0.1 % Neutrophils # (Auto) 14.1 TH/MM3 Lymphocytes # (Auto) 0.8 TH/MM3 Monocytes # (Auto) 0.1 TH/MM3 Eosinophils # (Auto) 0.0 TH/MM3 Basophils # (Auto) 0.0 TH/MM3 CBC Comment DIFF FINAL Differential Comment Blood Urea Nitrogen 14 MG/DL Creatinine 1.29 MG/DL Random Glucose 160 MG/DL Calcium Level 9.6 MG/DL Sodium Level 139 MEQ/L Potassium Level 4.3 MEQ/L Chloride Level 108 MEQ/L Carbon Dioxide Level 22.7 MEQ/L Anion Gap 8 MEQ/L Estimat Glomerular Filtration Rate 62 ML/MIN Objective Remarks General: NAD, AAOx3 Chest: CTA, no wheezing Cardiac: Regular Abd: +BS, soft ND/NT Ext: No edema A/P Problem List: (1) Dyspnea ICD Codes: R06.00 - Dyspnea, unspecified Status: Acute Plan: Shortness of breath - Pt is a 41 y/o WM with reported hx of severe asthma, COPD, hypothyroidism, and reportedly recently diagnosed ITP. He follows with a Dr. Haywood for his asthma and reported COPD. He states that he has been hospitalized 13 times in the last 5 months due to respiratory issues. - His Lactic acid on admission was 2.8. Pt has been afebrile. - CXR in [place] ED was negative for any acute process. - Pt was transferred top [facility] for sob and possible COPD exacerbation - Appreciate Pulmonology evaluation - cont Solu-Medrol/nebs - Cont. home meds, Spiriva, Symbicort, Singulair - Pt does not appear septic - He reports that he was taking his Prednisone taper as prescribed as an outpt but that after taking the last dose on the day of admission that the bottle was knocked over and the meds got wet so he can not use the rest of that taper - Pt is ambulating around the unit on RA without difficulty but appears SOB when you speak to him. - 2D echo is ordered Bipolar disorder - Cont. home meds Hypokalemia due to loss of potassium - Pt received replacement in the ED GERD (gastroesophageal reflux disease) - PPI Steroid-induced hyperglycemia - Hgb A1C 4.8 - NovoLog SSI - Accu checks Hypothyroidism - Cont. home meds Assessment and Plan Patient examined. Assessment and plan formulated with Kiara Ferraro PA-C. I agree with the above. sob. presumed asthma/copd exacerbation pt lung sound clear he believes sx's are better after steroids d/c with f/u steroid taper. Problem Qualifiers (1) Dyspnea: Qualified Codes: R06.02 - Shortness of breath Kiara Ferraro Oct 22, 2017 10:59 Tommie Judge MD Oct 22, 2017 14:34
[2017-10-22] MEDS: SODIUM CHLORIDE 0.9% FLUSH 10 ML FLUSH IV FLUSH PRN ×2 (12:35→17:51)
[2017-10-22] MEDS ORDERED: PRED10 PO (14:03)
--- NOTE | 2017-10-22 14:08 | HHI.DCPOC ---
Discharge Care Plan Diagnosis: (1) Dyspnea (2) Hypokalemia due to loss of potassium (3) Steroid-induced hyperglycemia (4) GERD (gastroesophageal reflux disease) (5) Hypothyroidism (6) Bipolar disorder Goals to Promote Your Health * To prevent worsening of your condition and complications * To maintain your health at the optimal level Directions to Meet Your Goals Take your medications as prescribed Follow your dietary instruction Follow activity as directed Keep your appointments as scheduled Take your immunizations and boosters as scheduled If your symptoms worsen call your PCP, if no PCP go to Urgent Care Center or Emergency Room Smoking is Dangerous to Your Health. Avoid second hand smoke Call the 24-hour hour crisis hotline for domestic abuse at Kiara Ferraro Oct 22, 2017 14:08
--- NOTE | 2017-10-22 16:13 | HHI.PR ---
Subjective Remarks IMP: ASTHMA/COPD STABLE AT PRESENT PLAN BRONCHODILATORS INCREASE ACTIVITY WILL SIGN OFF OFFICE 1 WEEK Objective Vital Signs Date Time Temp Pulse Resp B/P (MAP) Pulse Ox O2 Delivery O2 Flow Rate FiO2 10/22/17 15:15 98.9 113 18 141/80 (100) 97 10/22/17 13:00 98.3 103 18 129/85 (100) 97 10/22/17 12:37 109 10/22/17 12:37 97.0 106 18 131/86 (101) 98 10/22/17 08:25 86 10/22/17 08:01 98 21 10/22/17 07:05 98.1 89 18 125/72 (89) 97 10/22/17 05:59 97.8 87 18 104/61 (75) 100 10/22/17 02:06 98.7 96 18 112/73 (86) 96 10/21/17 21:52 96 21 Result Diagram: 10/22/17 0545 10/22/17 0545 Keshia Schmitt MD Oct 22, 2017 16:13
--- NOTE | 2017-10-22 19:29 | ECHRPT ---
Indication: SHORTNESS OF BREATH CONCLUSIONS Normal left ventricular size. Mild concentric left ventricular hypertrophy. The left ventricular systolic function is hyperdynamic with an estimated ejection fraction in the ra nge of 65- 70%. BP: 125 / 72 HR: 89 Rhythm: Sinus MEASUREMENTS (Male / Female) Normal Values Technical Quality:Fair 2D ECHO LV Diastolic Diameter PLAX 4.1 cm 4.2 - 5.9 / 3.9 - 5.3 cm LV Systolic Diameter PLAX 2.8 cm IVS Diastolic Thickness 1.1 cm 0.6 - 1.0 / 0.6 - 0.9 cm LVPW Diastolic Thickness 1.1 cm 0.6 - 1.0 / 0.6 - 0.9 cm LV Relative Wall Thickness 0.5 RV Internal Dim ED PLAX 1.9 cm LVOT Diameter 2.0 cm Aortic Root Diameter 3.3 cm LA Systolic Diameter LX 3.0 cm 3.0 - 4.0 / 2.7 - 3.8 cm M-MODE AV Cusp Separation MM 2.1 cm DOPPLER AV Peak Velocity 131.0 cm/s AV Peak Gradient 6.9 mmHg AV Mean Gradient 4.0 mmHg AV Velocity Time Integral 17.3 cm LVOT Peak Velocity 114.0 cm/s LVOT Peak Gradient 5.2 mmHg LVOT Velocity Time Integral 17.8 cm AV Area Cont Eq vti 3.2 cm AV Area Cont Eq pk 2.7 cm Mitral E Point Velocity 87.9 cm/s Mitral A Point Velocity 110.0 cm/s Mitral E to A Ratio 0.8 LV E' Lateral Velocity 13.8 cm/s Mitral E to LV E' Lateral Ratio 6.4 LV E' Septal Velocity 8.2 cm/s Mitral E to LV E' Septal Ratio 10.7 PV Peak Velocity 92.5 cm/s PV Peak Gradient 3.4 mmHg FINDINGS LEFT VENTRICLE Normal left ventricular size. Mild concentric left ventricular hypertrophy. The left ventricular systolic function is hyperdynamic with an estimated ejection fraction in the ra nge of 65- 70%. RIGHT VENTRICLE Normal right ventricular size and systolic function. LEFT ATRIUM The left atrial size is normal. RIGHT ATRIUM The right atrial size is normal. ATRIAL SEPTUM No atrial level shunt is demonstrated by color flow Doppler interrogation. AORTA The aortic root and proximal ascending aorta are not well visualized. MITRAL VALVE Structurally normal mitral valve. No mitral valve stenosis or regurgitation. AORTIC VALVE Trileaflet aortic valve. No aortic valve stenosis or regurgitation. TRICUSPID VALVE There is trace tricuspid valve regurgitation. PULMONARY VALVE No pulmonary valve regurgitation or stenosis. VESSELS The inferior vena cava was not well visualized. PERICARDIUM No pericardial effusion. Bobbi Robles MD, FACC (Electronically Signed) Final Date:22 October 2017 19:28
== END 2017-10-22 19:15 | disposition home or self-care (01) ==
LOC: NEDDLT 12:40 → NEDA 12:50 → NEPFCDU 14:35
PROVIDERS: ADMIT Hospitalist; ATTEND Hospitalist
DX: J44.1 Chronic obstructive pulmonary disease with (acute) exacerbation (principal); J45.901 Unspecified asthma with (acute) exacerbation; R06.02 Shortness of breath; E03.9 Hypothyroidism, unspecified; D69.3 Immune thrombocytopenic purpura; R61 Generalized hyperhidrosis; F41.9 Anxiety disorder, unspecified; F10.21 Alcohol dependence, in remission; F31.9 Bipolar disorder, unspecified; N41.1 Chronic prostatitis; E87.6 Hypokalemia; K21.9 Gastro-esophageal reflux disease without esophagitis; T38.0X5A Adverse effect of glucocorticoids and synthetic analogues, initial encounter; R73.9 Hyperglycemia, unspecified; Z86.010 Personal history of colon polyps; Z80.1 Family history of malignant neoplasm of trachea, bronchus and lung; Z80.0 Family history of malignant neoplasm of digestive organs; Z87.891 Personal history of nicotine dependence
CPT/HCPCS: 36600; 71045; 80048; 80053; 82805; 83605; 83735; 83880; 84439; 84443; 84480; 84484; 85025; 85379; 85610; 85730; 87804; 93005; 93306; 94640; 94664; 96361; 96374; 96375; 96376; 99285; G0378; J2060; J2930; J7030